=== PATIENT | female | born 1995 | race Caucasian/White ===

== ENCOUNTER → 2018-01-12 | Outpatient (CLI) | payer SELFPAY ==
--- NOTE | 2018-01-12 08:31 | MR ---
EXAMINATION TYPE: MR lumbar spine wo con DATE OF EXAM: 01/12/2018 COMPARISON: NONE HISTORY: Low back pain TECHNIQUE: Multiplanar, multisequence images of the lumbar spine were acquired. L1-L2: Normal disc appearance without desiccation. No herniation, protrusion or disc bulging. No ca nal stenosis is present. Foramina are patent bilaterally. L2-L3: Normal disc appearance without desiccation. No herniation, protrusion or disc bulging. No ca nal stenosis is present. Foramina are patent bilaterally. L3-L4: Hypertrophic change and ligamentum flavum encroaches mildly on the lateral recesses. There is no significant central stenosis or foraminal encroachment. No disc herniation. L4-L5: Facet arthropathy changes are present. There is a small posterior disc bulge contacts the ante rior thecal sac and possibly the proximal L5 nerve roots. No significant foraminal encroachment. L5-S1: No evident foraminal encroachment, no spinal stenosis. Posterior extension of endplate disc co mplex is only mild. Lumbar segments are intact. No paraspinal masses are identified. Conus medullaris has a normal appe arance. Lumbar vertebral bodies show preserved height and alignment. Bone marrow signal is maintained . There is a levoscoliosis centered at the lower lumbar spine. IMPRESSION: Degenerative disc disease and facet arthropathy. Scoliosis.
== END | disposition home or self-care (01) ==
LOC: RADMRIMAIN 07:34
PROVIDERS: ATTEND Family Medicine
DX: M51.36 Other intervertebral disc degeneration, lumbar region (principal); M46.96 Unspecified inflammatory spondylopathy, lumbar region
CPT/HCPCS: 72148

== ENCOUNTER 2021-03-21 14:22 | Emergency (ER) | payer OTHER ==
[2021-03-21] MEDS ORDERED: ACETAMINOPHEN TAB 500 MG TAB PO STA (14:24)
[2021-03-21] MEDS ORDERED: IBUPROFEN 600 MG TAB PO STA (14:24)
[2021-03-21 14:33] VITALS: TEMP 99
[2021-03-21] MEDS ORDERED: DIPH,PERTUS(ACELL)TETVAC-LF 0.5 ML VIAL IM ONE (14:47)
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
[2021-03-21 16:21] VITALS: BP 140/82; PULSE 85; RESP 18
[2021-03-22 16:46] LABS: Hepatitis C IgG Antibody Non-Reactive (Non-Reactive)
[2021-03-22 19:40] LABS: Hepatitis B Surface AB- Quant <3.5 mIU/mL; Hepatitis B Surface Antibody Non-Reactive (Non-Reactive)
[2021-03-26 00:08] LABS: HIV 2 AB Non-Reactive (Non-Reactive); HIV AB P24 Non-Reactive (Non-Reactive); HIV P24 AG Non-Reactive (Non-Reactive)
== END 2021-03-21 15:20 | disposition home or self-care (01) ==
LOC: EC 14:22
DX: S41.152A Open bite of left upper arm, initial encounter (principal); Z23 Encounter for immunization; Y04.1XXA Assault by human bite, initial encounter
CPT/HCPCS: 36415; 86701; 86706; 86803; 87390; 90471; 90715; 99283

== ENCOUNTER 2022-03-15 15:54 | Emergency (ER) | payer OTHER ==
[2022-03-15 16:02] VITALS: BP 158/118; PULSE 95; RESP 18; TEMP 98.6
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
== END 2022-03-15 18:14 | disposition home or self-care (01) ==
LOC: EC 15:54
DX: S40.022A Contusion of left upper arm, initial encounter (principal); S10.93XA Contusion of unspecified part of neck, initial encounter; V89.2XXA Person injured in unspecified motor-vehicle accident, traffic, initial encounter
CPT/HCPCS: 71046; 72125; 99284

== ENCOUNTER → 2022-03-19 | Outpatient (CLI) | payer OTHER ==
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
== END | disposition home or self-care (01) ==
LOC: RADCTMAIN 12:05
PROVIDERS: ATTEND Emergency Medicine
DX: S00.83XA Contusion of other part of head, initial encounter (principal); S23.3XXA Sprain of ligaments of thoracic spine, initial encounter; S33.5XXA Sprain of ligaments of lumbar spine, initial encounter; V89.2XXA Person injured in unspecified motor-vehicle accident, traffic, initial encounter
CPT/HCPCS: 70450; 72072; 72100

== ENCOUNTER 2024-01-30 01:15 | Emergency (ER) | payer BC ==
[2024-01-30 01:21] VITALS: TEMP 97.9
--- NOTE | 2024-01-30 02:19 | ED ---
Lower Extremity Injury HPI - General Chief Complaint: Extremity Injury, Lower Stated Complaint: LT Foot injury, [facility] Time Seen by Provider: 01/30/24 02:17 Source: patient, RN notes reviewed Mode of arrival: ambulatory Limitations: no limitations - History of Present Illness Initial Comments: 28-year-old female presenting to the ER with chief complaint of left great toe injury. States she was at work when a 10 to 15 pound machine fell directly onto her left great toe. She is unable to bear weight on the big toe and has limited range of motion of the big toe. Denies numbness or tingling. Denies other injuries. - Related Data Previous Rx's Medication Instructions Recorded Amoxic-Pot Clav 875-125Mg 1 tab PO Q12HR #14 tab 03/21/21 [Augmentin 875-125] Ibuprofen [Motrin] 600 mg PO Q8HR PRN #20 tab 03/15/22 Allergies Allergy/AdvReac Type Severity Reaction Status Date / Time No Known Allergies Allergy Verified 01/30/24 01:20 Review of Systems ROS Statement: Those systems with pertinent positive or pertinent negative responses have been documented in the HPI. ROS Other: All systems not noted in ROS Statement are negative. Past Medical History Past Medical History: No Reported History Additional Past Medical History / Comment(s): thrombocytosis History of Any Multi-Drug Resistant Organisms: None Reported Additional Past Surgical History / Comment(s): wisdom teeth removal Past Psychological History: No Psychological Hx Reported Smoking Status: Never smoker Past Alcohol Use History: None Reported Past Drug Use History: None Reported General Exam Limitations: no limitations General appearance: alert, in no apparent distress Left Ankle exam: Present: normal inspection, full ROM. Absent: tenderness, swelling Foot/Toe exam: Present: normal inspection, tenderness (Tenderness over first metacarpophalangeal joint). Absent: full ROM (Limited flexion and extension of left great toe), swelling, abrasion, laceration, deformity Neurovascular tendon exam: Present: no vascular compromise. Absent: pulse deficit, abnormal cap refill, sensory deficit Course Vital Signs 01/30/24 01/30/24 01:18 04:08 Temperature 97.9 F Pulse Rate 111 H 85 Respiratory 18 20 Rate Blood Pressure 154/103 131/84 O2 Sat by Pulse 99 100 Oximetry Medical Decision Making - Medical Decision Making Was pt. sent in by a medical professional or institution (Dr., PA, IT SECURITY ENGINEER, urgent care, hospital, or [facility]...) When possible be specific @ -No Did you speak to anyone other than the patient for history (EMS, parent, family, police, friend...)? What history was obtained from this source @ -No Did you review nursing and triage notes (agree or disagree)? Why? @ -I reviewed and agree with nursing and triage notes Were old charts reviewed (outside hosp., previous admission, EMS record, old EKG, old radiological studies, urgent care reports/EKG's, [facility] records)? Report findings @ -No old charts were reviewed Differential Diagnosis (chest pain, altered mental status, abdominal pain women, abdominal pain men, vaginal bleeding, weakness, fever, dyspnea, syncope, headache, dizziness, GI bleed, back pain, seizure, CVA, palpatations, mental health, musculoskeletal)? @ -Differential Musculoskeletal Muscular strain, contusion, ligament sprain, fracture, arthritis, septic arthritis, bursitis, cellulitis, muscle spasm, nerve compression, DVT, arterial occlusion, herpes zoster, electrolyte abnormality, tumor.... This is not meant to be in all inclusive list EKG interpreted by me (3pts min.). @ -None X-rays interpreted by me (1pt min.). @ -X-ray of left foot and ankle reveals no acute process CT interpreted by me (1pt min.). @ -None done U/S interpreted by me (1pt. min.). @ -None done What testing was considered but not performed or refused? (CT, X-rays, U/S, labs)? Why? @ -None What meds were considered but not given or refused? Why? @ -None Did you discuss the management of the patient with other professionals (professionals i.e. TAMMY Medeiros, IT SECURITY ENGINEER, lab, RT, psych nurse, elementary school social worker, physical plant employee, teacher, chief commercial officer, child support case officer)? Give summary @ -No Was smoking cessation discussed for >3mins.? @ -No Was critical care preformed (if so, how long)? @ -No Were there social determinants of health that impacted care today? How? (Homelessness, low income, unemployed, alcoholism, drug addiction, transporta tion, low edu. Level, literacy, decrease access to med. care, [facility], rehab)? @ -No Was there de-escalation of care discussed even if they declined (Discuss DNR or withdrawal of care, Hospice)? DNR status @ -No What co-morbidities impacted this encounter? (DM, HTN, Smoking, COPD, CAD, Cancer, CVA, ARF, Chemo, Hep., AIDS, mental health diagnosis, sleep apnea, morbid obesity)? @ -None Was patient admitted / discharged? Hospital course, mention meds given and route, prescriptions, significant lab abnormalities, going to OR and other pertinent info. @ -Patient was discharged. Patient was seen and evaluated for left great toe injury. Patient is neurovascularly intact. Patient was given oral ibuprofen for pain and swelling. X-rays reveal no acute process. Discussed diagnosis of right great toe strain with patient. Supportive care discussed. Work note provided. Strict return symptoms discussed with patient and she shows understanding and is agreeable to plan. Case was discussed with my ED attending Dr. Alan. Patient discharged in stable condition. Undiagnosed new problem with uncertain prognosis? @ -No Drug Therapy requiring intensive monitoring for toxicity (Heparin, Nitro, Ins ulin, Cardizem)? @ -No Were any procedures done? @ -No Diagnosis/symptom? @ -Left great toe strain Acute, or Chronic, or Acute on Chronic? @ -Acute Uncomplicated (without systemic symptoms) or Complicated (systemic symptoms)? @ -Uncomplicated Side effects of treatment? @ -No Exacerbation, Progression, or Severe Exacerbation? @ -No Poses a threat to life or bodily function? How? (Chest pain, USA, SC, pneumonia, PE, COPD, DKA, ARF, appy, cholecystitis, CVA, Diverticulitis, Homicidal, Suicidal, threat to staff... and all critical care pts) @ -No Disposition Clinical Impression: Sprain of left great toe Disposition: HOME SELF-CARE Condition: Stable Instructions (If sedation given, give patient instructions): Muscle Strain (ED) Additional Instructions: Keep left foot elevated and apply ice. Take anti-inflammatories such as ibuprofen. Please return to the Emergency Department if symptoms worsen or any other concerns. Is patient prescribed a controlled substance at d/c from ED?: No Referrals: Lawrence Denny MD [Primary Care Provider] - 1-2 days Time of Disposition: 04:04
[2024-01-30] MEDS: IBUPROFEN 600 MG TAB PO STA (02:21)
--- NOTE | 2024-01-30 03:46 | XR ---
EXAM: XR Left Foot Complete, 3 or More Views CLINICAL HISTORY: XR Reason: pain TECHNIQUE: Frontal, lateral and oblique views of the left foot. COMPARISON: No relevant prior studies available. FINDINGS: Bones/joints: Unremarkable. No acute fracture. No dislocation. Soft tissues: Unremarkable. No radiopaque foreign body. IMPRESSION: Normal left foot x-rays.
--- NOTE | 2024-01-30 03:49 | XR ---
EXAM: XR Left Ankle Complete, 3 or More Views CLINICAL HISTORY: XR Reason: pain TECHNIQUE: Frontal, lateral and oblique views of the left ankle. COMPARISON: No relevant prior studies available. FINDINGS: Bones/joints: Unremarkable. No acute fracture. No dislocation. Soft tissues: Unremarkable. IMPRESSION: Normal left ankle x-rays.
[2024-01-30 04:27] VITALS: BP 131/84; PULSE 85; RESP 20
== END 2024-01-30 04:08 | disposition home or self-care (01) ==
LOC: EC 01:15
DX: S93.502A Unspecified sprain of left great toe, initial encounter (principal); W20.8XXA Other cause of strike by thrown, projected or falling object, initial encounter
CPT/HCPCS: 99283

== ENCOUNTER → 2024-02-05 | Outpatient (CLI) | payer BC, OTHER ==
--- NOTE | 2024-02-05 09:37 | XR ---
EXAMINATION TYPE: XR foot complete LT DATE OF EXAM: 02/05/2024 CLINICAL HISTORY: pain TECHNIQUE: Frontal, lateral and oblique images of the left foot are obtained. COMPARISON: None. FINDINGS: There is no acute fracture/dislocation evident. The joint spaces appear within normal roblero its. The overlying soft tissue appears unremarkable. IMPRESSION: There is no acute fracture or dislocation. ICD 10 NO FRACTURE, INITIAL EVALUATION
== END | disposition home or self-care (01) ==
LOC: RADXRMAIN 09:01
PROVIDERS: ATTEND Emergency Medicine
DX: S90.32XA Contusion of left foot, initial encounter (principal)